=== PATIENT | female | born 1975 | race Caucasian/White ===

== ENCOUNTER 2017-05-21 20:42 | Inpatient (IN) | payer SELFPAY ==
[~2017-05-21] VITALS: Ht 154.9 cm; Wt 98.9 kg
[2017-05-21 20:50] VITALS: BP_SYST 131
[2017-05-21] MEDS ORDERED: NACL 0.9% 1,000 ML IV ONE (20:53)
[2017-05-21 21:28] LABS: BILIRUBIN,URINE 1+ (NEGATIVE); BLOOD, URINE 2+ (NEGATIVE); CLARITY/URINE HAZY (CLEAR); COLOR,URINE YELLOW (YELLOW); GLUCOSE,URINE NEGATIVE (NEGATIVE); KETONES,URINE 1+ (NEGATIVE); LEUKOCYTE ESTERASE ,URINE NEGATIVE (NEGATIVE); NITRITE, URINE NEGATIVE (NEGATIVE); PH,URINE 5.5 (5.0-8.0); PROTEIN URINE TRACE (NEGATIVE); UROBILINOGEN,URINE 0.2 (0.2-1.0)
[2017-05-21] MEDS ORDERED: HYDROmorphone 1 MG INJ. 1 MG/ML AMPUL IVP ONE (21:30)
[2017-05-21] MEDS ORDERED: ONDANSETRON HCL 4 MG/2 ML VIAL IVP ONE (21:30)
[2017-05-21 21:31] LABS: HEMATOCRIT 29.5 % (36-48); MEAN CORPUSCULAR HEMOGLOBIN 20 pg (27-31); MEAN CORPUSCULAR HGB CONC 30 % (32-36); MEAN CORPUSCULAR VOLUME 66 fL (79.0-98.0); PLATELET COUNT (AUTO) 291 K/uL (130-430); RED BLOOD CELL COUNT(AUTO) 4.49 MIL/uL (4.2-6.2); RED CELL DISTRIBUTION WIDTH 17.8 % (9.0-15.0); WHITE BLOOD COUNT (AUTO) 7.8 K/uL (4.8-10.8)
[2017-05-21 21:44] LABS: CALCIUM 8.9 mg/dL (8.4-11.0); CREATININE 0.76 mg/dL (0.55-1.30); POTASSIUM 3.3 mmol/L (3.5-5.1)
[2017-05-21 21:47] LABS: ATYPICAL LYMPHOCYTES % 0 % (0-0); BAND % (MANUAL) 1 % (0-6); BASOPHILS % (MANUAL) 0 % (0-2); EOSINOPHILS % (MANUAL) 2 % (0-7); LYMPHOCYTES % (MANUAL) 30 % (20-46); MONOCYTES % (MANUAL) 4 % (0-11); PROTHROMBIN TIME 10.4 SECS (9.5-12.5)
[2017-05-21 21:49] LABS: ALBUMIN 3.6 g/dL (3.4-4.8); TOTAL BILIRUBIN 0.2 mg/dL (0.0-1.0)
[2017-05-21 21:50] LABS: BACTERIA,URINE FEW /HPF (None Seen); MUCUS,URINE 3+ /LPF (None Seen)
[2017-05-21 21:51] LABS: FINE GRANULAR CASTS,URINE 0-10 /LPF (None Seen); HYALINE CASTS, URINE 0-10 /LPF (None Seen)
[2017-05-21 23:11] VITALS: BP_SYST 116
[2017-05-21 23:50] VITALS: BP_SYST 120
[2017-05-22] MEDS: D5NS 1,000 ML IV SCH ×3 (00:10→21:53)
[2017-05-22] MEDS: ONDANSETRON HCL 4 MG/2 ML VIAL IVP PRN ×3 (02:51→21:52)
[2017-05-22] MEDS: MORPHINE 2 MG/ML INJ. SYRINGE IVP PRN ×4 (02:52→21:48)
[2017-05-22 03:34] VITALS: BP_SYST 115
[2017-05-22 08:10] VITALS: BP_SYST 104
[2017-05-22] MEDS ORDERED: ZOLPIDEM TARTRATE 5 MG TABLET PO PRN (09:00)
[2017-05-22] MEDS ORDERED: ONDANSETRON HCL 4 MG/2 ML VIAL IVP PRN (09:00)
[2017-05-22] MEDS ORDERED: MORPHINE 2 MG/ML INJ. SYRINGE IVP PRN (09:00)
[2017-05-22] MEDS ORDERED: MAGNESIUM SULFATE 50 ML IV PRN (09:00)
[2017-05-22] MEDS ORDERED: DOCUSATE SODIUM 100 MG CAPSULE PO PRN (09:00)
[2017-05-22] MEDS ORDERED: ACETAMINOPHEN 325 MG TABLET PO PRN (09:00)
[2017-05-22] MEDS ORDERED: POTASSIUM CHLORIDE 40 MEQ, LIDOCAINE JECT 2% PF 100 MG 50 MG in NS 250 ML IV ONE (09:00)
[2017-05-22] MEDS ORDERED: POTASSIUM CHLORIDE 10 MEQ TAB.PRT.SR PO PRN (09:00)
[2017-05-22] MEDS ORDERED: LORazepam 2 MG/ML VIAL IVP PRN (09:00)
[2017-05-22 12:00] VITALS: BP_SYST 95
[2017-05-22 17:05] VITALS: BP_SYST 135
[2017-05-22 17:07] VITALS: BP_SYST 99
[2017-05-22] MEDS: SIMETHICONE 80 MG TAB.CHEW PO PRN (21:48)
[2017-05-22 23:46] VITALS: BP_SYST 109
[2017-05-23] MEDS: MORPHINE 2 MG/ML INJ. SYRINGE IVP PRN ×3 (01:15→22:15)
[2017-05-23 04:07] VITALS: BP_SYST 113
[2017-05-23] MEDS: SIMETHICONE 80 MG TAB.CHEW PO PRN (05:20)
[2017-05-23 06:06] LABS: CA 27.29 6.8 U/mL (0.0-38.6)
[2017-05-23 07:56] LABS: BASOPHILS % (AUTO) 0.3 % (0.0-2.0); EOSINOPHILS # (AUTO) 0.2 K/uL (0.0-0.4); EOSINOPHILS % (AUTO) 2.3 % (0.0-4.0); HEMATOCRIT 27.6 % (36-48); HEMOGLOBIN 8.1 g/dL (12.0-16.0); LYMPHOCYTES # (AUTO) 1.5 K/uL (1.0-5.5); LYMPHOCYTES % (AUTO) 20.7 % (20.5-51.5); MEAN CORPUSCULAR HEMOGLOBIN 19 pg (27-31); MEAN CORPUSCULAR HGB CONC 29 % (32-36); MEAN CORPUSCULAR VOLUME 65 fL (79.0-98.0); MONOCYTES # (AUTO) 0.4 K/uL (0.0-1.0); MONOCYTES % (AUTO) 5.9 % (1.7-9.3); NEUTROPHILS # (AUTO) 5.1 K/uL (1.8-7.7); PLATELET COUNT (AUTO) 261 K/uL (130-430); RED BLOOD CELL COUNT(AUTO) 4.24 MIL/uL (4.2-6.2); RED CELL DISTRIBUTION WIDTH 17.3 % (9.0-15.0); WHITE BLOOD COUNT (AUTO) 7.2 K/uL (4.8-10.8)
[2017-05-23 08:00] VITALS: BP_SYST 107
[2017-05-23 08:03] LABS: NEUTROPHILS % (AUTO) 70.8 % (40.0-70.0)
[2017-05-23 08:28] LABS: CANCER AG, 125 12.9 U/mL (0.0-38.1)
[2017-05-23 08:28] LABS: CALCIUM 8.6 mg/dL (8.4-11.0); CREATININE 0.68 mg/dL (0.55-1.30)
[2017-05-23] MEDS ORDERED: GLYCOPYRROLATE 0.2 MG/ML VIAL IJ ONE (10:11)
[2017-05-23] MEDS ORDERED: ONDANSETRON HCL 4 MG/2 ML VIAL IVP ONE (10:11)
[2017-05-23] MEDS ORDERED: NS IRRIG SOLN 1000 ML IR ONE (10:11)
[2017-05-23] MEDS ORDERED: BUPIVACAINE /EPINEPHRINE/PF 0.5% 30 ML VIAL INJ ONE (10:11)
[2017-05-23] MEDS ORDERED: PROPOFOL 200MG/ 20ML VIAL (DIPRIVAN) IV ONE (10:11)
[2017-05-23] MEDS ORDERED: SEVOFLURANE 15 MIN GAS INH ONE (10:11)
[2017-05-23] MEDS ORDERED: ROCURONIUM BROMIDE 10 MG/ML (ZEMURON) IV ONE (10:11)
[2017-05-23] MEDS ORDERED: NEOSTIGMINE METHYLSULFATE 1 MG/ML, 10 ML VIAL IVP ONE (10:11)
[2017-05-23] MEDS ORDERED: NS 1000 ML BAG IV ONE (10:11)
[2017-05-23] MEDS ORDERED: MIDAZOLAM HCL 5 MG/ML VIAL (VERSED) IV ONE (10:11)
[2017-05-23] MEDS ORDERED: LR 1,000 ML IV.SOLN IV ONE (10:11)
[2017-05-23] MEDS ORDERED: fentaNYL CITRATE/PF 100 MCG/2 ML AMP IVP ONE (10:11)
[2017-05-23] MEDS ORDERED: KETOROLAC TROMETHAMINE 30 MG VIAL IVP ONE (10:11)
[2017-05-23 12:15] VITALS: BP_SYST 110
[2017-05-23] MEDS: D5NS 1,000 ML IV SCH ×2 (13:17→21:46)
[2017-05-23 16:36] VITALS: BP_SYST 121
[2017-05-23] MEDS ORDERED: LR 1,000 ML IV SCH (19:31)
[2017-05-23] MEDS ORDERED: HYDROmorphone 2 MG/ML VIAL IVP PRN ×2 (19:45)
[2017-05-23] MEDS ORDERED: KETOROLAC TROMETHAMINE 30 MG VIAL IVP PRN (19:45)
[2017-05-23] MEDS ORDERED: MEPERIDINE HCL/PF 25 MG/ML DISP.SYRIN IVP PRN ×2 (19:45)
[2017-05-23] MEDS ORDERED: ONDANSETRON HCL 4 MG/2 ML VIAL IVP PRN (19:45)
[2017-05-23] MEDS ORDERED: HYDROmorphone 1 MG INJ. 1 MG/ML AMPUL IVP PRN (19:45)
[2017-05-23 21:20] VITALS: BP_SYST 119
[2017-05-23 22:00] VITALS: BP_SYST 105
[2017-05-23] MEDS ORDERED: ceFAZolin SODIUM 1 GM VIAL ONE (22:25)
[2017-05-23] MEDS: ceFAZolin SODIUM 2 GM in D5W 100 ML IV SCH (22:43)
[2017-05-24 00:10] VITALS: BP_SYST 103
[2017-05-24 03:55] VITALS: BP_SYST 105
[2017-05-24 06:39] LABS: BASOPHILS % (AUTO) 0.1 % (0.0-2.0); EOSINOPHILS % (AUTO) 0.1 % (0.0-4.0); HEMATOCRIT 28.1 % (36-48); HEMOGLOBIN 8.4 g/dL (12.0-16.0); LYMPHOCYTES # (AUTO) 0.8 K/uL (1.0-5.5); LYMPHOCYTES % (AUTO) 7.7 % (20.5-51.5); MEAN CORPUSCULAR HEMOGLOBIN 20 pg (27-31); MEAN CORPUSCULAR HGB CONC 30 % (32-36); MEAN CORPUSCULAR VOLUME 65 fL (79.0-98.0); MONOCYTES # (AUTO) 0.2 K/uL (0.0-1.0); MONOCYTES % (AUTO) 2.3 % (1.7-9.3); NEUTROPHILS # (AUTO) 9.7 K/uL (1.8-7.7); NEUTROPHILS % (AUTO) 89.8 % (40.0-70.0); PLATELET COUNT (AUTO) 265 K/uL (130-430); RED CELL DISTRIBUTION WIDTH 17.6 % (9.0-15.0); WHITE BLOOD COUNT (AUTO) 10.7 K/uL (4.8-10.8)
[2017-05-24 06:43] LABS: CALCIUM 8.7 mg/dL (8.4-11.0); CREATININE 0.68 mg/dL (0.55-1.30); POTASSIUM 4.2 mmol/L (3.5-5.1)
[2017-05-24] MEDS: MORPHINE 2 MG/ML INJ. SYRINGE IVP PRN ×2 (06:45→23:47)
[2017-05-24] MEDS: ceFAZolin SODIUM 2 GM in D5W 100 ML IV SCH ×3 (06:58→22:19)
[2017-05-24 08:00] VITALS: BP_SYST 148
[2017-05-24 11:32] VITALS: BP_SYST 133
[2017-05-24] MEDS: D5NS 1,000 ML IV SCH ×3 (11:36→23:47)
[2017-05-24] MEDS: HYDROcodone/ACETAMIN 5-325 MG TAB (NORCO/ VICODIN) PO PRN (11:37)
[2017-05-24] MEDS: ONDANSETRON HCL 4 MG/2 ML VIAL IVP PRN ×2 (11:37→17:21)
[2017-05-24 15:11] VITALS: BP_SYST 127
[2017-05-24] MEDS: OXYCODONE/ACETAMINOPHEN 5-325 TABLET PO PRN (17:21)
[2017-05-24 20:00] VITALS: BP_SYST 113
[2017-05-25 00:06] VITALS: BP_SYST 108
[2017-05-25 04:14] VITALS: BP_SYST 102
[2017-05-25] MEDS: OXYCODONE/ACETAMINOPHEN 5-325 TABLET PO PRN (04:24)
[2017-05-25] MEDS: ceFAZolin SODIUM 2 GM in D5W 100 ML IV SCH (05:30)
[2017-05-25 06:53] LABS: BASOPHILS % (AUTO) 0.4 % (0.0-2.0); EOSINOPHILS # (AUTO) 0.1 K/uL (0.0-0.4); EOSINOPHILS % (AUTO) 1.9 % (0.0-4.0); HEMATOCRIT 25.6 % (36-48); HEMOGLOBIN 7.6 g/dL (12.0-16.0); LYMPHOCYTES # (AUTO) 1.8 K/uL (1.0-5.5); LYMPHOCYTES % (AUTO) 27.7 % (20.5-51.5); MEAN CORPUSCULAR HEMOGLOBIN 19 pg (27-31); MEAN CORPUSCULAR HGB CONC 30 % (32-36); MEAN CORPUSCULAR VOLUME 66 fL (79.0-98.0); MONOCYTES # (AUTO) 0.4 K/uL (0.0-1.0); MONOCYTES % (AUTO) 5.8 % (1.7-9.3); NEUTROPHILS # (AUTO) 4.3 K/uL (1.8-7.7); NEUTROPHILS % (AUTO) 64.2 % (40.0-70.0); PLATELET COUNT (AUTO) 272 K/uL (130-430); RED BLOOD CELL COUNT(AUTO) 3.91 MIL/uL (4.2-6.2); RED CELL DISTRIBUTION WIDTH 17.6 % (9.0-15.0); WHITE BLOOD COUNT (AUTO) 6.6 K/uL (4.8-10.8)
[2017-05-25 07:08] LABS: CREATININE 0.7 mg/dL (0.55-1.30); POTASSIUM 3.3 mmol/L (3.5-5.1)
[2017-05-25 08:00] VITALS: BP_SYST 111
[2017-05-25] MEDS: HYDROcodone/ACETAMIN 5-325 MG TAB (NORCO/ VICODIN) PO PRN (08:01)
[2017-05-25] MEDS ORDERED: SIMETHICONE 80 MG TAB.CHEW PO SCH (09:00)
[2017-05-25 09:09] VITALS: BP_SYST 111
[2017-05-25] MEDS ORDERED: OXYC-130 (09:17)
[2017-05-25] MEDS ORDERED: DOXY-4 PO (09:17)
== END 2017-05-25 10:12 | disposition home or self-care (01) | DRG 742 ==
LOC: SED 20:42 → SMU 23:10
PROVIDERS: ADMIT General Practice; ATTEND General Practice
PROC: 0DNS4ZZ (ICD-10-PCS; 2017-05-23)
PROC: 0UN04ZZ Release Right Ovary, Percutaneous Endoscopic Approach (ICD-10-PCS; 2017-05-23)
PROC: 0DNW4ZZ Release Peritoneum, Percutaneous Endoscopic Approach (ICD-10-PCS; 2017-05-23)
PROC: 0DNE4ZZ Release Large Intestine, Percutaneous Endoscopic Approach (ICD-10-PCS; 2017-05-23)
PROC: 0UB04ZZ Excision of Right Ovary, Percutaneous Endoscopic Approach (ICD-10-PCS; principal; 2017-05-23 10:00)
DX: N73.6 Female pelvic peritoneal adhesions (postinfective) (principal); Z68.41 Body mass index [BMI] 40.0-44.9, adult; I10 Essential (primary) hypertension; D50.9 Iron deficiency anemia, unspecified; E87.6 Hypokalemia; F17.200 Nicotine dependence, unspecified, uncomplicated; N83.201 Unspecified ovarian cyst, right side; K80.20 Calculus of gallbladder without cholecystitis without obstruction; E66.9 Obesity, unspecified; J45.909 Unspecified asthma, uncomplicated; K58.9 Irritable bowel syndrome, unspecified; K66.0 Peritoneal adhesions (postprocedural) (postinfection); N85.2 Hypertrophy of uterus; N85.6 Intrauterine synechiae; N94.6 Dysmenorrhea, unspecified; N73.9 Female pelvic inflammatory disease, unspecified
CPT/HCPCS: 36415; 76705; 76830-TC; 76857; 78226; 80048; 80053; 81000-TC; 81025; 82150-TC; 83690-TC; 83735-TC; 84703; 85007; 85025; 85027; 85610-TC; 85730-TC; 86300; 86304; 87070-TC; 87075-TC; 87081; 88108; 88305; 96361; 96374; 96375; 99285; A9537; C1727; C1782; J0690; J1170; J1885; J2250; J2270; J2405; J2704; J2710; J3010; J3480; J3490; J7030; J7042; J7050; J7060; J7120

== ENCOUNTER 2021-06-01 13:48 | Emergency (ER) | payer MEDICAID ==
[~2021-06-01] VITALS: Ht 154.9 cm; Wt 92.1 kg
[~2021-06-01 13:48] MED LIST: DOXY100C PO; OXYC-130
[2021-06-01 14:15] VITALS: BP_SYST 127
--- NOTE | 2021-06-01 14:15 | NUR ---
Pt to bed 2 for evaluation.
--- NOTE | 2021-06-01 14:30 | NUR ---
pt. came in with concerns of feeling pressure in head, states it feels like she dove deep underwater and has head pressure, states also has been having heavy period for over a year and concerned she might be anemic
--- NOTE | 2021-06-01 14:40 | NUR ---
ER at bedside examining patient.
[2021-06-01] MEDS ORDERED: NACL 0.9% 1,000 ML IV ONE (15:15)
[2021-06-01 15:36] LABS: BASOPHILS % (AUTO) 0.9 % (0.0-2.0); EOSINOPHILS # (AUTO) 0.2 K/uL (0.0-0.4); EOSINOPHILS % (AUTO) 3.2 % (0.0-4.0); HEMATOCRIT 26.6 % (36-48); HEMOGLOBIN 8.6 g/dL (12.0-16.0); LYMPHOCYTES # (AUTO) 1.2 K/uL (1.0-5.5); LYMPHOCYTES % (AUTO) 24.8 % (20.5-51.5); MEAN CORPUSCULAR HEMOGLOBIN 29 pg (27-31); MEAN CORPUSCULAR HGB CONC 32 % (32-36); MEAN CORPUSCULAR VOLUME 88 fL (79.0-98.0); MONOCYTES # (AUTO) 0.3 K/uL (0.0-1.0); MONOCYTES % (AUTO) 5.4 % (1.7-9.3); NEUTROPHILS # (AUTO) 3.2 K/uL (1.8-7.7); NEUTROPHILS % (AUTO) 65.7 % (40.0-70.0); PLATELET COUNT (AUTO) 266 K/uL (130-430); RED BLOOD CELL COUNT(AUTO) 3.02 MIL/uL (4.2-6.2); RED CELL DISTRIBUTION WIDTH 16.2 % (9.0-15.0); WHITE BLOOD COUNT (AUTO) 4.9 K/uL (4.8-10.8)
--- NOTE | 2021-06-01 19:20 | NUR ---
Assumed total care of patient. Patient AAO x4 resting comfortably in gurney, VSS, breathing even and unlabored, no signs of acute distress noted. Patient awaiting results of blood work. Will continue to monitor.
--- NOTE | 2021-06-01 19:23 | NUR ---
report to Suzi
--- NOTE | 2021-06-01 20:05 | NUR ---
ER Dr. Small at bedside speaking with patient.
[2021-06-01] MEDS ORDERED: MEDR10TA3 PO (20:44)
[2021-06-01 20:51] LABS: CALCIUM 8.5 mg/dL (8.4-11.0); CREATININE 0.64 mg/dL (0.55-1.30); POTASSIUM 3.6 mmol/L (3.5-5.1)
[2021-06-01 20:57] LABS: ALBUMIN 3.5 g/dL (3.4-4.8)
[2021-06-01 21:06] VITALS: BP_SYST 109
--- NOTE | 2021-06-01 21:06 | NUR ---
Patient given written and verbal discharge instructions and verbalizes understanding. ER MD discussed with patient the results and treatment provided. Patient in stable condition. ID arm band removed. IV catheter removed intact and dressing applied, no active bleeding. Rx of Provera given. Patient educated on pain management and to follow up with PMD. Pain Scale 0/10. Opportunity for questions provided and answered. Medication side effect fact sheet provided.
[2021-06-01 21:19] LABS: TOTAL BILIRUBIN 0.2 mg/dL (0.0-1.0)
== END 2021-06-01 21:06 | disposition home or self-care (01) ==
LOC: SED 13:48
DX: N92.0 Excessive and frequent menstruation with regular cycle (principal); D64.9 Anemia, unspecified; I10 Essential (primary) hypertension; J45.909 Unspecified asthma, uncomplicated; Z79.899 Other long term (current) drug therapy
CPT/HCPCS: 36415; 76830; 76857; 80053; 81025; 85025; 96360; 99285; J7030

== ENCOUNTER 2021-08-01 06:39 | Day surgery (SDC) | payer MEDICAID ==
[~2021-08-01] VITALS: Ht 155.6 cm; Wt 88.9 kg
[~2021-08-01 06:39] MED LIST changes: +MEDR10TA3 PO
[2021-08-01 07:37] LABS: HCG,QUAL RESULT NEGATIVE (NEGATIVE)
[2021-08-01] MEDS ORDERED: DESFLURANE 15 MIN GAS INH ONE (08:08)
[2021-08-01] MEDS ORDERED: PROPOFOL 200MG/ 20ML VIAL (DIPRIVAN) IV ONE (08:08)
[2021-08-01] MEDS ORDERED: DEXAMETHASONE SOD PHOSPHATE 4 MG/ML VIAL IVP ONE (08:08)
[2021-08-01] MEDS ORDERED: fentaNYL CITRATE/PF 100 MCG/2 ML AMP IVP ONE (08:08)
[2021-08-01] MEDS ORDERED: KETOROLAC TROMETHAMINE 30 MG VIAL IVP ONE (08:08)
[2021-08-01] MEDS ORDERED: ONDANSETRON HCL 4 MG/2 ML VIAL IVP ONE (08:08)
[2021-08-01] MEDS ORDERED: NS IRRIG SOLN 1000 ML IR ONE (08:08)
[2021-08-01] MEDS ORDERED: NS 1000 ML IV.SOLN IV ONE (08:08)
[2021-08-01] MEDS ORDERED: ONDANSETRON HCL 4 MG/2 ML VIAL IVP PRN (08:45)
[2021-08-01] MEDS ORDERED: HYDROmorphone 1 MG/ML INJ. CARTRIDGE IVP PRN ×2 (08:45)
[2021-08-01] MEDS: HYDROmorphone 1 MG/ML INJ. CARTRIDGE ONE ×2 (09:05→09:15)
[2021-08-01 10:34] VITALS: BP_SYST 117
== END 2021-08-01 11:30 | disposition home or self-care (01) ==
LOC: SDS 06:39 → SMU 06:50 → SDS 11:30
PROVIDERS: ATTEND Obstetrics & Gynecology
DX: N92.0 Excessive and frequent menstruation with regular cycle (principal); D25.1 Intramural leiomyoma of uterus; K21.9 Gastro-esophageal reflux disease without esophagitis; J45.909 Unspecified asthma, uncomplicated; Z79.899 Other long term (current) drug therapy; Z20.822 Contact with and (suspected) exposure to COVID-19
CPT/HCPCS: 36415; 58563; 84703; 86886; 86900; 86901; J1100; J1170; J1885; J2405; J2704; J3010; J7030; U0003